=== PATIENT | male | born 1995 | race Caucasian/White ===

== ENCOUNTER 2018-12-24 04:02 | Emergency (ER) | payer OTHER ==
[2018-12-24 04:17] VITALS: BP 132/89; PULSE 83
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
[2018-12-24] MEDS ORDERED: Lidocaine 1% 50 ML MDV INJECT STA (06:11)
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
== END 2018-12-24 06:58 | disposition home or self-care (01) ==
LOC: JP.ED 04:02
DX: S62.306A Unspecified fracture of fifth metacarpal bone, right hand, initial encounter for closed fracture (principal); F17.210 Nicotine dependence, cigarettes, uncomplicated; W22.01XA Walked into wall, initial encounter
CPT/HCPCS: 26605; 73120; 99283; J2001

== ENCOUNTER 2019-08-12 21:28 | Emergency (ER) | payer SELFPAY ==
[2019-08-12] MEDS ORDERED: diphenhydrAMINE 50 MG/ML SDV IM ONE (21:32)
[2019-08-12] MEDS ORDERED: methylPREDNISolone Sodium Succinate 125 MG/2 ML SDV IV ONE (21:32)
[2019-08-12] MEDS ORDERED: EPINEPHrine 1 MG/ML SDV IM ONE (21:32)
[2019-08-12] MEDS ORDERED: Sodium Chloride 0.9% 10 ML Syringe FLUSH PRN ×2 (21:32)
[2019-08-12] MEDS ORDERED: LORazepam 2 MG/ML SDV IVPUSH ONE (21:38)
--- NOTE | 2019-08-12 21:39 | EDM.PDOC ---
ED HPI GENERAL MEDICAL PROBLEM - General Stated Complaint: ALLERGIC REACTION Time Seen by Provider: 08/12/19 21:36 Source of Information: Reports: Patient, RN Notes Reviewed History Limitations: Reports: No Limitations - History of Present Illness INITIAL COMMENTS - FREE TEXT/NARRATIVE: 24-year-old gentleman presents to the emergency department today complaint of difficulty breathing and rash, he states he is never had any allergies before no known drug allergies all of a sudden about an hour prior developed a rash on his chest felt he had difficulty with breathing does not complain of throat closure denies any exposures. Possibly may be related to Sriracha peanuts - Related Data Allergies Allergy/AdvReac Type Severity Reaction Status Date / Time No Known Allergies Allergy Verified 08/12/19 21:51 Home Meds: Home Meds NK [No Known Home Meds] 06/22/14 [History] Past Medical History - Past Health History Medical/Surgical History: Denies Medical/Surgical History - Infectious Disease History Infectious Disease History: Reports: Chicken Pox Social & Family History - Family History Family Medical History: Noncontributory - Tobacco Use Smoking Status *Q: Never Smoker - Caffeine Use Caffeine Use: Reports: Coffee, Energy Drinks ED ROS ALLERGIC REACTION - Review of Systems Review Of Systems: See Below Constitutional: Reports: No Symptoms HEENT: Denies: Throat Pain, Throat Swelling Respiratory: Reports: Shortness of Breath. Denies: Wheezing, Cough, Sputum Cardiovascular: Reports: No Symptoms Skin: Reports: Rash ED EXAM GENERAL NO PERIP PULSE - Physical Exam Exam: See Below Exam Limited By: No Limitations General Appearance: Alert, Moderate Distress Respiratory/Chest: No Respiratory Distress, Lungs Clear, Normal Breath Sounds, No Accessory Muscle Use, Chest Non-Tender Cardiovascular: Regular Rate, Rhythm, No Murmur GI/Abdominal: Soft, Non-Tender Skin Exam: Other (Rash consistent with hives type reaction both anterior and posterior on the trunk) Course - Vital Signs Last Recorded V/S: Last Vital Signs Temp 98.8 F 08/12/19 21:35 Pulse 105 H 08/12/19 22:31 Resp 16 08/12/19 22:31 BP 136/98 H 08/12/19 22:31 Pulse Ox 98 08/12/19 22:31 - Orders/Labs/Meds Orders: Active Orders 24 hr Category Date Time Status Peripheral IV Care [RC] . DIRECTED Care 08/12/19 21:33 Active Sodium Chloride 0.9% [Saline Flush] Med 08/12/19 21:32 Active 10 ml FLUSH ASDIRECTED PRN Sodium Chloride 0.9% [Saline Flush] Med 08/12/19 21:32 Active 10 ml FLUSH ASDIRECTED PRN Peripheral IV Insertion Adult [OM.PC] Urgent Oth 08/12/19 21:32 Ordered Medication Orders Sodium Chloride (Saline Flush) 10 ml FLUSH ASDIRECTED PRN PRN Reason: Keep Vein Open Last Admin: 08/12/19 21:35 Dose: 10 ml Sodium Chloride (Saline Flush) 10 ml FLUSH ASDIRECTED PRN PRN Reason: Keep Vein Open Last Admin: 08/12/19 21:50 Dose: 10 ml Meds: Medications Generic Name Dose Route Start Last Admin Trade Name Freq PRN Reason Stop Dose Admin Sodium Chloride 10 ml 08/12/19 21:32 08/12/19 21:35 Saline Flush FLUSH 10 ml ASDIRECTED PRN Administration Keep Vein Open Sodium Chloride 10 ml 08/12/19 21:32 08/12/19 21:50 Saline Flush FLUSH 10 ml ASDIRECTED PRN Administration Keep Vein Open Discontinued Medications Generic Name Dose Route Start Last Admin Trade Name Freq PRN Reason Stop Dose Admin Diphenhydramine HCl 50 mg 08/12/19 21:32 08/12/19 21:49 Benadryl IM 08/12/19 21:33 50 mg ONETIME ONE Administration Epinephrine HCl 0.4 mg 08/12/19 21:32 08/12/19 21:49 Adrenalin IM 08/12/19 21:33 0.4 mg ONETIME ONE Administration Lorazepam 0.5 mg 08/12/19 21:38 08/12/19 21:48 Ativan IVPUSH 08/12/19 21:39 0.5 mg ONETIME ONE Administration Methylprednisolone Sodium Succinate 125 mg 08/12/19 21:32 08/12/19 21:35 Solu-Medrol IV 08/12/19 21:33 125 mg ONETIME ONE Administration Departure - Departure Time of Disposition: 23:30 Disposition: Home, Self-Care 01 Condition: Good Clinical Impression: Allergic reaction Qualifiers: Encounter type: initial encounter Qualified Code(s): T78.40XA - Allergy, unspecified, initial encounter - Discharge Information Referrals: PCP,None [Primary Care Provider] - Additional Instructions: Recommend filling the prescription for the injectable epinephrine use if needed , also avoidance of Sriracha peanuts, please followup with your primary care provider in 3-5 days if not better, please call return to the emergency department with worsening of symptoms. Sepsis Event Note - Focused Exam Vital Signs: Vital Signs Temp Pulse Resp BP Pulse Ox 08/12/19 22:31 105 H 16 136/98 H 98 08/12/19 22:21 116 H 17 136/101 H 96 08/12/19 22:01 107 H 17 138/79 98 08/12/19 21:50 104 H 20 144/88 H 97 08/12/19 21:40 100 16 155/87 H 99 08/12/19 21:35 98.8 F 126 H 22 H 166/92 H 96 Date Exam was Performed: 08/12/19 Time Exam was Performed: 23:29 - My Orders Last 24 Hours: My Active Orders 08/12/19 21:32 Sodium Chloride 0.9% [Saline Flush] 10 ml FLUSH ASDIRECTED PRN Sodium Chloride 0.9% [Saline Flush] 10 ml FLUSH ASDIRECTED PRN Peripheral IV Insertion Adult [OM.PC] Urgent 08/12/19 21:33 Peripheral IV Care [RC] . DIRECTED - Assessment/Plan Last 24 Hours: My Active Orders 08/12/19 21:32 Sodium Chloride 0.9% [Saline Flush] 10 ml FLUSH ASDIRECTED PRN Sodium Chloride 0.9% [Saline Flush] 10 ml FLUSH ASDIRECTED PRN Peripheral IV Insertion Adult [OM.PC] Urgent 08/12/19 21:33 Peripheral IV Care [RC] . DIRECTED Plan: Assessment Acuity = acute Site and laterality = allergic reaction Etiology = probable sriracha peanuts Manifestations = none Location of injury = Home Lab values = none Plan Good improvement with Solu-Medrol, Benadryl and epinephrine as well as 1 mg Ativan prescription for EpiPen injectable 0.3 mg subcu IM x1 home follow-up primary care 3 to 5 days if not better This note was dictated using Hers voice recognition software please call with any questions on syntax or grammar.
[2019-08-12 23:37] VITALS: BP 131/79; PULSE 100
== END 2019-08-12 23:42 | disposition home or self-care (01) ==
LOC: JP.ED 21:28
DX: T78.40XA Allergy, unspecified, initial encounter (principal)
CPT/HCPCS: 96372; 96374; 96375; 99284; J0171; J1200; J2060; J2930

== ENCOUNTER 2019-12-25 01:14 | Emergency (ER) | payer SELFPAY ==
[2019-12-25 01:51] VITALS: BP 142/76; PULSE 115
[2019-12-25] MEDS ORDERED: Albuterol/Ipratropium 3.0-0.5 MG/3 ML Neb Soln NEB ONE (01:54)
--- NOTE | 2019-12-25 02:00 | EDM.PDOC ---
ED HPI GENERAL MEDICAL PROBLEM - General Chief Complaint: Respiratory Problem Stated Complaint: HARD TIME BREATHING Time Seen by Provider: 12/25/19 01:40 Source of Information: Reports: Patient History Limitations: Reports: No Limitations - History of Present Illness Onset: Today Onset Date: 12/24/19 Onset Time: 12:00 Duration: Getting Worse Location: Reports: Chest Quality: Reports: Ache, Burning - Related Data Allergies Allergy/AdvReac Type Severity Reaction Status Date / Time No Known Allergies Allergy Verified 12/25/19 01:26 Home Meds: Home Meds NK [No Known Home Meds] 06/22/14 [History] Past Medical History - Past Health History Medical/Surgical History: Denies Medical/Surgical History Musculoskeletal History: Reports: Fracture - Infectious Disease History Infectious Disease History: Reports: Chicken Pox Social & Family History - Family History Family Medical History: Noncontributory - Tobacco Use Smoking Status *Q: Current Every Day Smoker Years of Tobacco use: 2 Packs/Tins Daily: 0.2 - Caffeine Use Caffeine Use: Reports: Coffee, Energy Drinks - Recreational Drug Use Recreational Drug Use: No ED ROS GENERAL - Review of Systems Review Of Systems: See Below Constitutional: Reports: Malaise HEENT: Reports: Other (Started with itchy nose) Respiratory: Reports: Shortness of Breath, Pleuritic Chest Pain, Cough, Sputum (Greenish) Cardiovascular: Reports: Chest Pain (Left anterior) Endocrine: Reports: Fatigue GI/Abdominal: Reports: No Symptoms ED EXAM, GENERAL - Physical Exam Exam: See Below Exam Limited By: No Limitations General Appearance: Alert, WD/WN, Moderate Distress, Other (Constantly coughing) Ears: Normal External Exam, Normal Canal Ear Exam: Bilateral Ear: TM normal Nose: Normal Inspection, Normal Mucosa Throat/Mouth: Normal Inspection, Normal Lips Neck: Supple ( as a cough), Non-Tender Respiratory/Chest: Respiratory Distress, Other (Constant cough. Difficulty carrying on normal speech) Cardiovascular: Regular Rate, Rhythm, No Edema, No Murmur, Tachycardia Back Exam: Normal Inspection, Full Range of Motion Neurological: Alert, Oriented Psychiatric: Normal Affect, Anxious Skin Exam: Warm, Dry. No: Rash Lymphatic: No Adenopathy EKG INTERPRETATION EKG Date: 12/25/19 Time: 02:10 Rhythm: NSR (Sinus tachycardia) Pyote: Normal P-Wave: Present QRS: Normal ST-T: Other (Early repolarization pattern) Course - Vital Signs Text/Narrative:: Initial differential diagnosis: Viral bronchitis, pneumonia, cove attending team, cardiac ischemia, aspiration. chest x-ray is unremarkable. EKG shows no ischemia. CBC shows normal white blood cell count. Pro-calcitonin is normal. Lactic acid and anion gapare elevated. Working diagnosis is a viral bronchitis and I will treat him with inhaler and steroid. I feel we are obligated to test him for covid 19. Last Recorded V/S: Last Vital Signs Temp 37.2 C 12/25/19 01:31 Pulse 115 H 12/25/19 01:31 Resp 19 12/25/19 01:31 BP 142/76 H 12/25/19 01:31 Pulse Ox 96 12/25/19 01:31 - Orders/Labs/Meds Orders: Active Orders 24 hr Category Date Time Status EKG Documentation Completion [RC] ASDIRECTED Care 12/25/19 01:51 Active RT Aerosol Therapy [RC] ASDIRECTED Care 12/25/19 01:54 Active Chest 2V [CR] Stat Exams 12/25/19 01:51 Taken UA W/MICROSCOPIC [URIN] Urgent Lab 12/25/19 02:44 Ordered EKG 12 Lead [EK] Urgent Ther 12/25/19 01:51 Ordered Labs: Laboratory Tests 12/25/19 12/25/19 12/25/19 Range/Units 02:00 02:00 02:00 WBC 10.3 (4.5-11.0) K/uL RBC 4.84 (4.30-5.90) M/uL Hgb 14.9 (12.0-15.0) g/dL Hct 43.5 (40.0-54.0) % MCV 90 (80-98) fL MCH 31 (27-31) pg MCHC 34 (32-36) % Plt Count 289 (150-400) K/uL Sodium 149 H (140-148) mmol/L Potassium 3.9 (3.6-5.2) mmol/L Chloride 109 H (100-108) mmol/L Carbon Dioxide 25 (21-32) mmol/L Anion Gap 18.9 H (5.0-14.0) mmol/L BUN 15 (7-18) mg/dL Creatinine 1.1 (0.8-1.3) mg/dL Est Cr Clr Drug Dosing 105.45 mL/min Estimated GFR (MDRD) > 60 (>60) Glucose 95 (74-106) mg/dL Lactic Acid (0.4-2.0) mmol/L Calcium 8.2 L (8.5-10.1) mg/dL Total Bilirubin 0.4 (0.2-1.0) mg/dL AST 24 (15-37) U/L ALT 21 (12-78) U/L Alkaline Phosphatase 65 (46-116) U/L Troponin I < 0.017 (0.000-0.056) ng/mL Total Protein 7.0 (6.4-8.2) g/dL Albumin 4.0 (3.4-5.0) g/dL Globulin 3.0 (2.3-3.5) g/dL Albumin/Globulin Ratio 1.3 (1.2-2.2) Procalcitonin ng/mL 12/25/19 12/25/19 Range/Units 02:00 02:00 WBC (4.5-11.0) K/uL RBC (4.30-5.90) M/uL Hgb (12.0-15.0) g/dL Hct (40.0-54.0) % MCV (80-98) fL MCH (27-31) pg MCHC (32-36) % Plt Count (150-400) K/uL Sodium (140-148) mmol/L Potassium (3.6-5.2) mmol/L Chloride (100-108) mmol/L Carbon Dioxide (21-32) mmol/L Anion Gap (5.0-14.0) mmol/L BUN (7-18) mg/dL Creatinine (0.8-1.3) mg/dL Est Cr Clr Drug Dosing mL/min Estimated GFR (MDRD) (>60) Glucose (74-106) mg/dL Lactic Acid 2.6 H (0.4-2.0) mmol/L Calcium (8.5-10.1) mg/dL Total Bilirubin (0.2-1.0) mg/dL AST (15-37) U/L ALT (12-78) U/L Alkaline Phosphatase (46-116) U/L Troponin I (0.000-0.056) ng/mL Total Protein (6.4-8.2) g/dL Albumin (3.4-5.0) g/dL Globulin (2.3-3.5) g/dL Albumin/Globulin Ratio (1.2-2.2) Procalcitonin < 0.05 ng/mL Meds: Medications Discontinued Medications Generic Name Dose Route Start Last Admin Trade Name Rl PRN Reason Stop Dose Admin Albuterol/Ipratropium 3 ml 12/25/19 01:54 12/25/19 02:34 Duoneb 3.0-0.5 Mg/3 Ml NEB 12/25/19 01:55 3 ml ONETIME ONE Administration Departure - Departure Time of Disposition: 02:49 Disposition: Home, Self-Care 01 Condition: Fair Clinical Impression: Bronchitis - Discharge Information Instructions: Shortness of Breath, Adult, [id number], Acute Bronchitis, Adult, [id number] Referrals: PCP,None [Primary Care Provider] - Forms: ED Department Discharge Additional Instructions: You should self quarantine at home until the Kovic test is returned. Prescription is provided for inhaler and oral steroid Sepsis Event Note (ED) - Evaluation Sepsis Screening Result: No Definite Risk - Focused Exam Vital Signs: Vital Signs Temp Pulse Resp BP Pulse Ox 12/25/19 01:31 37.2 C 115 H 19 142/76 H 96 12/25/19 01:24 37.2 C 115 H 18 142/76 H 96 - My Orders Last 24 Hours: My Active Orders 12/25/19 01:51 EKG Documentation Completion [RC] ASDIRECTED Chest 2V [CR] Stat EKG 12 Lead [EK] Urgent 12/25/19 01:54 RT Aerosol Therapy [RC] ASDIRECTED 12/25/19 02:44 UA W/MICROSCOPIC [URIN] Urgent - Assessment/Plan Last 24 Hours: My Active Orders 12/25/19 01:51 EKG Documentation Completion [RC] ASDIRECTED Chest 2V [CR] Stat EKG 12 Lead [EK] Urgent 12/25/19 01:54 RT Aerosol Therapy [RC] ASDIRECTED 12/25/19 02:44 UA W/MICROSCOPIC [URIN] Urgent
--- NOTE | 2019-12-25 09:20 | CR ---
CHEST: 2 view CLINICAL HISTORY:Cough and chest pain COMPARISON:None FINDINGS: The heart size, pulmonary vascularity and hilar structures are normal. No infiltrate effusion or pneumothorax is seen. IMPRESSION: No acute cardiopulmonary process.
== END 2019-12-25 03:18 | disposition home or self-care (01) ==
LOC: JP.ED 01:14
DX: J40 Bronchitis, not specified as acute or chronic (principal); F17.210 Nicotine dependence, cigarettes, uncomplicated; R00.0 Tachycardia, unspecified; Z20.828 Contact with and (suspected) exposure to other viral communicable diseases
CPT/HCPCS: 36415; 71046; 71046-26; 80053; 81001; 83605; 84145; 84484; 85027; 93005; 93010; 94640; 99284; 99284-25; J7620-GY; U0002

== ENCOUNTER 2020-07-11 09:53 | Day surgery (SDC) | payer SELFPAY ==
[~2020-07-11 09:53] MED LIST: Midazolam 1 MG/ML 2 ML SDV ONE; Propofol 200 MG/20 ML SDV ONE; fentaNYL 100 MCG/2 ML SDV ONE
[2020-07-11] MEDS ORDERED: Lidocaine 1% with EPINEPHrine 1:100,000 50 ML MDV ONE (10:20)
[2020-07-11] MEDS ORDERED: Bupivacaine 0.5% 50 ML MDV ONE (10:20)
[2020-07-11] MEDS ORDERED: Sodium Chloride 0.9% 1,000 ML IV SCH (10:30)
[2020-07-11 10:50] LABS: CORONAVIRUS COVID-19 NAA NEGATIVE (NEGATIVE)
[2020-07-11] MEDS ORDERED: Midazolam 1 MG/ML 2 ML SDV ONE (11:01)
[2020-07-11] MEDS ORDERED: Propofol 200 MG/20 ML SDV ONE ×3 (11:04→11:49)
[2020-07-11] MEDS ORDERED: fentaNYL 100 MCG/2 ML SDV ONE (11:11)
[2020-07-11] MEDS ORDERED: metroNIDAZOLE/Normal Saline 500 MG in Premix Bag 1 BAG IV ONE (11:15)
[2020-07-11] MEDS ORDERED: ceFAZolin 2 GM in Premix Bag 1 BAG IV ONE (11:15)
[2020-07-11] MEDS ORDERED: Ketorolac 60 MG/2 ML SDV ONE (12:09)
[2020-07-11] MEDS ORDERED: Acetaminophen/HYDROcodone 325-5 MG Tab PO PRN (13:00)
[2020-07-11 13:26] VITALS: BP 119/62; PULSE 61
--- NOTE | 2020-07-11 14:34 | OR ---
DATE OF PROCEDURE: 07/11/2020 SURGEON: Shar Suarez MD PROCEDURES: 1. Bilateral transversus abdominis plane blocks. 2. Bilateral rectus sheath blocks. COMPLICATION: None. EDUCATION PROGRAM ASSOCIATE: None. RISKS: Risks, benefits, alternatives, limitations, but not limited to infection, bleeding, and injury to abdominal structures were explained to the patient who wished to proceed. PROCEDURE IN DETAIL: The patient was placed in a supine position. The total solution would be divided into 4 aliquots using 80% of the total allotted solution. Left transversus plane was identified first. This was accessed under direct ultrasound guidance and 20% of the solution was injected. This was then repeated on the right transversus abdominal plane, and then bilateral rectus sheaths were also injected with 20% under direct visualization. The patient tolerated the procedure well. Shar Suarez MD /[id number]
--- NOTE | 2020-07-11 15:16 | OR ---
DATE OF PROCEDURE: 07/11/2020 SURGEON: Shar Suarez MD PROCEDURE: Left inguinal hernia repair, open, incarcerated. COMPLICATIONS: None. BEAM MACHINE OPERATOR: None. ANESTHETIC: MAC. RISKS: Risks, benefits, alternatives, and limitations including, but not limited to infection, bleeding, and injury to abdominal structures, testicular injury, seroma, hematoma, failure, and other risks not listed here were explained to the patient who wished to proceed. PROCEDURE IN DETAIL: The patient was placed in a supine position. A curvilinear incision was made in the left groin. This was then carried down with electrocautery to the external oblique aponeurosis which was opened with a 15 blade and subsequently with Metzenbaum scissors. The aponeurosis was then spread medially and laterally. Cord structures were identified and were surrounded with Edi drain. The peritoneum would be identified and bluntly dissected. After this, this was then suture ligated. The extra-large plug and patch system was then placed with interrupted sutures and tacks. This was around the cord structures. The ilioinguinal nerve was identified and not tagged or stitched or anything to in the way. The skin over the external oblique aponeurosis was then closed with 3-0 Vicryl sutures. Subcutaneous tissues were closed with 3-0 Vicryl and the skin was closed with 4-0 Vicryl and Dermabond was applied. The patient tolerated the procedure well. Shar Suaerz MD /[id number]
== END 2020-07-11 13:44 | disposition home or self-care (01) ==
LOC: JP.SDS 09:53
PROVIDERS: ATTEND Surgery
DX: K40.30 Unilateral inguinal hernia, with obstruction, without gangrene, not specified as recurrent (principal); F17.200 Nicotine dependence, unspecified, uncomplicated; Z01.812 Encounter for preprocedural laboratory examination; Z20.822 Contact with and (suspected) exposure to COVID-19
CPT/HCPCS: 0241U; 49507; A9270; C1713; C1781; J0171; J0690; J1100; J1885; J2250; J2704; J2795; J3010; J3490; J7030

== ENCOUNTER 2020-11-26 00:43 | Emergency (ER) | payer OTHER, MEDICAID ==
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
[2020-11-26] MEDS ORDERED: Bacitracin Oint 1 GM U/D Packet TOP ONE (02:37)
[2020-11-26] MEDS ORDERED: Lidocaine 1% 20 ML MDV INJECT ONE ×2 (02:37→04:56)
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
[2020-11-26] MEDS ORDERED: Lidocaine 1% 20 ML MDV ONE (04:00)
[2020-11-26] MEDS ORDERED: Bacitracin Oint 28.35 GM Tube TOP ONE (04:45)
[2020-11-26] MEDS ORDERED: Bacitracin Oint 28.35 GM Tube ONE (04:47)
[2020-11-26] MEDS ORDERED: cefTRIAXone 1 GM in Sodium Chloride 0.9% 50 ML IV ONE (05:03)
[2020-11-26 06:55] VITALS: BP 127/74; PULSE 101
[2020-11-26] MEDS ORDERED: Bacitracin Oint 28.35 GM Tube TOP SCH (09:00)
--- NOTE | 2020-11-26 09:50 | CR ---
Shoulder Comp Rt, Lumbar Spine 2 or 3V CLINICAL HISTORY: Fall FINDINGS: There is no acute fracture or dislocation in the right shoulder. Articular surfaces are smooth. Impression: Negative Lumbar Spine 2 or 3V CLINICAL HISTORY: Fall FINDINGS: The vertebral body heights are maintained. There is a transitional lumbosacral segment. The vertebral disc spaces are maintained. There is straightening of the lumbar lordosis which may represent spasm IMPRESSION: No fracture or subluxation Straightening of the lumbar lordosis may indicate spasm
== END 2020-11-26 05:54 | disposition home or self-care (01) ==
LOC: JP.ED 00:43
DX: S01.01XA Laceration without foreign body of scalp, initial encounter (principal); S11.91XA Laceration without foreign body of unspecified part of neck, initial encounter; S01.111A Laceration without foreign body of right eyelid and periocular area, initial encounter; S01.81XA Laceration without foreign body of other part of head, initial encounter; S43.109A Unspecified dislocation of unspecified acromioclavicular joint, initial encounter; M54.16 Radiculopathy, lumbar region; Z72.0 Tobacco use; V86.35XA Unspecified occupant of 3- or 4- wheeled all-terrain vehicle (ATV) injured in traffic accident, initial encounter
CPT/HCPCS: 12004; 12016; 36415; 70450; 72100; 72125; 73030; 80053; 80307; 81001; 85025; 96365; 99284; A9270; J0696; 12005; 12014; 99283

== ENCOUNTER 2021-11-16 14:44 | Emergency (ER) | payer MEDICAID ==
[2021-11-16 15:25] VITALS: BP 144/88; PULSE 67
[2021-11-16] MEDS ORDERED: Lidocaine 1% 5 ML VIAL INJECT ONE (15:54)
[2021-11-16] MEDS ORDERED: Bacitracin Oint 1 GM U/D Packet TOP ONE (15:54)
== END 2021-11-16 17:08 | disposition home or self-care (01) ==
LOC: JP.ED 14:44
DX: S61.012A Laceration without foreign body of left thumb without damage to nail, initial encounter (principal); W26.8XXA Contact with other sharp object(s), not elsewhere classified, initial encounter
CPT/HCPCS: 12001; 99282; 99282-25